=== PATIENT | female | born 1990 | race Caucasian/White ===

== ENCOUNTER → 2016-08-20 | Outpatient (CLI) | payer MEDICAID ==
--- NOTE | 2016-08-20 12:14 | DX ---
Chest, Two Views 1149 hours History: Shortness of breath, left lower lobe rhonchi. Comparison: None. Findings: Cardiac silhouette is within normal range. Patchy alveolar opacity identified in the righ t lower lobe. Tenting of the left hemidiaphragm without definite left lobe pneumonia. No congestive h eart failure, pleural effusion, or pneumothorax. Impression: 1. Suspect early right lower lobe pneumonia. 2. No pleural effusion or cardiomegaly.
== END ==
LOC: FIMAGING 11:51
PROVIDERS: ATTEND Family Medicine
DX: R06.02 Shortness of breath (principal); J98.4 Other disorders of lung

== ENCOUNTER → 2017-06-13 | Outpatient (CLI) | payer MEDICAID | LOC: FIMAGING 13:58 | PROVIDERS: ATTEND Psychiatry & Neurology Neurology | DX: R51 Headache (principal) ==

== ENCOUNTER → 2018-04-23 | Outpatient (CLI) | payer OTHER | LOC: BRMIMAGING 10:53 | PROVIDERS: ATTEND Obstetrics & Gynecology | DX: N92.3 Ovulation bleeding (principal) | CPT/HCPCS: 76856-PO ==